=== PATIENT | male | born 1995 | race American Indian/Alaskan Native ===

== ENCOUNTER 2017-09-24 13:55 | Inpatient (IN) | payer BC ==
[2017-09-24 15:29] LABS: Hematocrit 47.7 % (35.5-45.6); Mean Corpuscular HGB Conc 34 % (32-34); Mean Corpuscular Hemoglobin 29 pg (28-32); Mean Corpuscular Volume 86 fl (84-94); Platelet Count 359 K/mm3 (140-440); Red Blood Count 5.57 M/mm3 (3.65-5.03); Red Cell Distribution Width 14.2 % (13.2-15.2)
[2017-09-24 15:42] LABS: BUN/Creatinine Ratio 13; Blood Urea Nitrogen 14 mg/dL (9-20); Calcium 10.4 mg/dL (8.4-10.2); Hemolysis Index 8
[2017-09-24 16:39] LABS: Bacteria,Urine 1+ /HPF (Negative); Bilirubin,Urine NEG (Negative); Blood,Urine NEG (Negative); Color,Urine Yellow (Yellow); Mucus,Urine 3+ /HPF; Urobilinogen,Urine < 2.0 mg/dL (<2.0)
[2017-09-24] MEDS ORDERED: NACL 0.9% 1000 ML 1,000 ML IV ONE ×2 (16:45)
[2017-09-24] MEDS ORDERED: ZOFRAN IV ONE (16:45)
--- NOTE | 2017-09-24 16:45 | Emergency Department Report ---
<SUSHANTLD MCKEON - Last Filed: 09/24/17 19:40> ED Abdominal Pain HPI - General Chief Complaint: Abdominal Pain Stated Complaint: SYNCOPE AND ANXIETY Time Seen by Provider: 09/24/17 16:25 Source: patient, family, EMS Mode of arrival: Ambulatory Limitations: No Limitations - History of Present Illness Initial Comments: Patient said he passed out at work today. He also complained of abdominal pain , nausea, vomiting and diarrhea. Patient's has a history of peptic ulcer disease. He said he saw blood earlier on his vomit. MD Complaint: abdominal pain -: Sudden Location: periumbilical, epigastric Radiation: none Migration to: no migration Severity: severe Severity scale (0 -10): 8 Quality: sharp Consistency: constant Improves With: nothing Worsens With: nothing Associated Symptoms: nausea, vomiting, diarrhea, fever - Related Data Home Medications Medication Instructions Recorded Confirmed Last Taken No Known Home Medications [No 09/24/17 09/24/17 Unknown Reported Home Medications] Allergies Allergy/AdvReac Type Severity Reaction Status Date / Time No Known Allergies Allergy Unverified 09/24/17 14:52 ED Review of Systems ROS: Stated complaint: SYNCOPE AND ANXIETY Other details as noted in HPI Comment: All other systems reviewed and negative Constitutional: fever, malaise. denies: chills Eyes: denies: vision change ENT: denies: ear pain, dental pain Respiratory: denies: cough, shortness of breath Cardiovascular: denies: chest pain, palpitations Endocrine: no symptoms reported Gastrointestinal: abdominal pain, nausea, vomiting, diarrhea Genitourinary: denies: urgency, dysuria, frequency, hematuria Musculoskeletal: denies: back pain, joint swelling Skin: denies: rash, lesions, change in color Neurological: denies: headache, weakness, numbness, paresthesias Psychiatric: denies: anxiety, depression Hematological/Lymphatic: denies: easy bleeding, easy bruising ED Past Medical Hx - Past Medical History Previous Medical History?: Yes Hx GERD: Yes Additional medical history: anxiety and stopped taking meds - Surgical History Past Surgical History?: Yes Additional Surgical History: Left hand surgery - Social History Smoking Status: Current Every Day Smoker Substance Use Type: Marijuana - Medications Home Medications: Home Medications Medication Instructions Recorded Confirmed Last Taken Type No Known Home Medications [No 09/24/17 09/24/17 Unknown History Reported Home Medications] ED Physical Exam - General Limitations: No Limitations General appearance: alert, in no apparent distress - Head Head exam: Present: atraumatic, normocephalic, normal inspection - Eye Eye exam: Present: normal appearance, PERRL, EOMI Pupils: Present: normal accommodation - ENT ENT exam: Present: normal exam, normal orophraynx, mucous membranes moist - Neck Neck exam: Present: normal inspection, full ROM. Absent: tenderness - Respiratory Respiratory exam: Present: normal lung sounds bilaterally. Absent: respiratory distress, wheezes, rhonchi - Cardiovascular Cardiovascular Exam: Present: regular rate, normal rhythm, normal heart sounds - GI/Abdominal GI/Abdominal exam: Present: soft, tenderness (epigastric), normal bowel sounds. Absent: distended, guarding, rebound - Rectal Rectal exam: Present: deferred - Extremities Exam Extremities exam: Present: normal inspection, full ROM, normal capillary refill - Back Exam Back exam: Present: normal inspection, full ROM. Absent: tenderness, CVA tenderness (R), CVA tenderness (L) - Neurological Exam Neurological exam: Present: alert, oriented X3, CN II-XII intact - Psychiatric Psychiatric exam: Present: normal affect, normal mood - Skin Skin exam: Present: warm, dry, intact, normal color. Absent: rash ED Course Vital Signs 09/24/17 09/24/17 09/24/17 14:52 16:39 16:46 Temperature 99 F 98.3 F Pulse Rate 66 Respiratory 24 19 19 Rate Blood Pressure 118/63 O2 Sat by Pulse 99 100 100 Oximetry 09/24/17 09/24/17 09/24/17 19:09 19:15 20:00 Temperature Pulse Rate 71 78 73 Respiratory 14 19 13 Rate Blood Pressure 116/67 119/63 O2 Sat by Pulse 98 98 98 Oximetry - Reevaluation(s) Reevaluation #1: 09/24/17 19:40 I discussed this in detail with the hospitalist on-call Dr. Gill. He will admit patient to the hospital for further evaluation and management. ED Medical Decision Making - Lab Data Result diagrams: 09/24/17 15:09 09/24/17 15:09 - EKG Data -: EKG Interpreted by Pa EKG shows normal: sinus rhythm Rate: normal (63) - EKG Data When compared to previous EKG there are: previous EKG unavailable Interpretation: LVH, other (No STEMI) - Radiology Data Radiology results: report reviewed, image reviewed - Medical Decision Making Syncope. Abdominal pain. Orthostatic hypotension. Gastroenteritis. Leukocytosis. Sepsis. Critical care attestation.: If time is entered above; I have spent that time in minutes in the direct care of this critically ill patient, excluding procedure time. ED Disposition Disposition: OP ADMIT IP TO THIS HOSP Is pt being admited?: Yes Does the pt Need Aspirin: No Condition: Stable Time of Disposition: 19:41 <OSIRIS GILL - Last Filed: 09/24/17 21:58> ED Medical Decision Making - Lab Data Result diagrams: 09/24/17 15:09 09/24/17 15:09
[2017-09-24 16:48] LABS: Anisocytosis 1+; Band Neutrophils # (Manual) 0.4 K/mm3; Basophils % (Manual) 0 % (0.0-1.8); Eosinophils % (Manual) 0 % (0.0-4.3); Total Cells Counted 200
[2017-09-24 16:51] LABS: Platelet Estimate Consistent w Auto
[2017-09-24 16:59] LABS: Amphetamine Screen,Urine PRESUMPTIVE NEGATIVE; Benzodiazepines Screen,Urine PRESUMPTIVE NEGATIVE; Methadone Screen,Urine PRESUMPTIVE NEGATIVE; Opiate Screen,Urine PRESUMPTIVE NEGATIVE
[2017-09-24 17:15] LABS: Cannabinoid Screen,Urine PRESUMPTIVE POSITIVE; Cocaine Screen,Urine PRESUMPTIVE POSITIVE
[2017-09-24 17:28] LABS: Alanine Aminotransferase 28 units/L (7-56); Albumin 5.3 g/dL (3.9-5)
[2017-09-24 17:33] LABS: Bilirubin,Direct < 0.2 mg/dL (0-0.2)
[2017-09-24] MEDS ORDERED: LEVAQUIN 750MG/150ML 750 MG/150 ML BAG IV ONE (17:47)
[2017-09-24] MEDS ORDERED: PROTONIX IV ONE (17:49)
--- NOTE | 2017-09-24 18:09 | XRay Report ---
FINAL REPORT EXAM: XR CHEST 1V AP HISTORY: syncope TECHNIQUE: One view examination of the chest PRIORS: None FINDINGS: There is no visible pulmonary consolidation, pleural effusion, or pneumothorax. Cardiac silhouette size is normal without vascular congestion. No visible acute displaced fracture in the regional skeleton. IMPRESSION: No evidence of acute cardiopulmonary disease in the visualized chest
[2017-09-24 18:35] LABS: INR 1.03 (0.87-1.13)
[2017-09-24 18:36] LABS: Partial Thromboplastin Time 34.4 Sec. (24.2-36.6)
--- NOTE | 2017-09-24 18:59 | Cat Scan Report ---
FINAL REPORT EXAM: CT HEAD/BRAIN WO CON HISTORY: Syncope TECHNIQUE: CT examination of the head without IV contrast PRIORS: None. FINDINGS: No acute air-fluid level visualized in the included air-filled sinuses. Bone windows demonstrate no acute fracture. The brain is without mass, mass effect, hemorrhage, or acute infarct. There is no extra-axial intracranial bleed, brain bleed, or midline shift. The ventricles and sulci are age-appropriate. IMPRESSION: No acute CVA, intracranial bleed, or brain mass
--- NOTE | 2017-09-24 19:24 | Cat Scan Report ---
FINAL REPORT EXAM: CT ABDOMEN PELVIS W CON HISTORY: abdominal pain, nausea. vomiting and diarrhea. TECHNIQUE: Standard enhanced CT of the abdomen and pelvis. Coronal and sagittal reconstruction was also performed. Delayed imaging through the kidneys and bladder was obtained. Contrast: Intravenous and oral contrast was given PRIORS: None. FINDINGS: Within the abdomen, the liver, spleen, pancreas, gallbladder, adrenal glands, and kidneys are unremarkable. No evidence for retroperitoneal or pelvic lymphadenopathy is seen. The bowel loops have normal caliber. No soft tissue mass, fluid collection, inflammatory change, or free air is seen within the abdomen or pelvis. The appendix is normal. Within the pelvis, the bladder is unremarkable. The prostate is normal. No evidence for mass or lymphadenopathy is seen in the pelvis. Images through the upper abdomen include the lung bases which are expanded and clear. Bony structures show no focal abnormalities and are intact. IMPRESSION: No acute intra-abdominal process noted.
[2017-09-24] MEDS ORDERED: SODIUM CHLORIDE FLUSH SYRINGE 10 ML IV PRN (21:45)
[2017-09-24] MEDS ORDERED: MORPHINE IV PRN (21:45)
[2017-09-24] MEDS ORDERED: TYLENOL PO PRN (21:45)
[2017-09-24] MEDS ORDERED: REGLAN IV PRN (21:45)
[2017-09-24] MEDS ORDERED: ZOFRAN IV PRN (21:45)
[2017-09-24] MEDS ORDERED: PERCOCET 5/325 PO PRN (21:45)
--- NOTE | 2017-09-24 21:45 | History and Physical Report ---
History of Present Illness Date of examination: 09/24/17 Date of admission: 09/24/17 19:41 Chief complaint: Chief complaint: Nausea vomiting and diarrhea for 2 days duration more so for today . Also passed out at work today. History of present illness: History of Present Illness: 22-year-old -[place] male with no significant past medical history except for severe reflux and comes in for nausea vomiting and diarrhea of 2 days duration. More vomiting today. Patient was at work when he passed out. Patient attributes it to dehydration. Did not have any fever or cough or congestion in the last few days. No dysuria. No risk factors no muscle aches. No chest pain no seizures. No exacerbating or relieving factors. Patient also has abdominal pain which is 5/10. Dull in character. Cramping pain. There's small amount of blood in 1 episode of vomiting. No hematemesis persistently. Past Medical History Previous Medical History?: Yes Hx GERD: Yes Additional medical history: anxiety and stopped taking meds Surgical History Past Surgical History?: Yes Additional Surgical History: Left hand surgery Social History Smoking Status: Current Every Day Smoker Substance Use Type: Marijuana and cocaine Family history Htn Medications Home Medications: Home Medications Medication Instructions Recorded Confirmed Last Taken Type No Known Home Medications [No 09/24/17 09/24/17 Unknown History Reported Home Medications] Review of Systems ROS: Stated complaint: SYNCOPE AND ANXIETY Other details as noted in HPI Comment: All other systems reviewed and negative Constitutional: fever, malaise. denies: chills Eyes: denies: vision change ENT: denies: ear pain, dental pain Respiratory: denies: cough, shortness of breath Cardiovascular: denies: chest pain, palpitations Endocrine: no symptoms reported Gastrointestinal: abdominal pain, nausea, vomiting, diarrhea 2 days patient also has severe reflux of acid for the past couple years Genitourinary: denies: urgency, dysuria, frequency, hematuria Musculoskeletal: denies: back pain, joint swelling Skin: denies: rash, lesions, change in color Neurological: denies: headache, weakness, numbness, paresthesias Psychiatric: denies: anxiety, depression Hematological/Lymphatic: denies: easy bleeding, easy bruising Medications and Allergies Allergies Allergy/AdvReac Type Severity Reaction Status Date / Time No Known Allergies Allergy Unverified 09/24/17 14:52 Home Medications Medication Instructions Recorded Confirmed Last Taken Type No Known Home Medications [No 09/24/17 09/24/17 Unknown History Reported Home Medications] Exam - Constitutional Vitals: Temp Pulse Resp BP Pulse Ox 98.3 F 73 13 119/63 98 09/24/17 16:39 09/24/17 20:00 09/24/17 20:00 09/24/17 20:00 09/24/17 20:00 General appearance: Present: no acute distress, well-nourished, other (tongue dry) - EENT Eyes: Present: PERRL ENT: hearing intact, clear oral mucosa - Neck Neck: Present: supple, normal ROM - Respiratory Respiratory effort: normal Respiratory: bilateral: CTA - Cardiovascular Heart rate: 96 Rhythm: regular Heart Sounds: Present: S1 & S2. Absent: rub, click - Extremities Extremities: no ischemia, pulses intact, pulses symmetrical, No edema Peripheral Pulses: within normal limits - Abdominal General gastrointestinal: Present: soft, non-tender, non-distended, normal bowel sounds Male genitourinary: Present: normal - Integumentary Integumentary: Present: clear, warm, dry - Musculoskeletal Musculoskeletal: gait normal, strength equal bilaterally - Psychiatric Psychiatric: appropriate mood/affect, intact judgment & insight - Neurologic Neurologic: CNII-XII intact, moves all extremities - Allied Health Allied health notes reviewed: nursing, case management Results - Labs CBC & Chem 7: 09/24/17 15:09 09/24/17 15:09 Labs: Laboratory Last Values WBC 28.4 K/mm3 (4.5-11.0) H 09/24/17 15:09 RBC 5.57 M/mm3 (3.65-5.03) H 09/24/17 15:09 Hgb 16.0 gm/dl (11.8-15.2) H 09/24/17 15:09 Hct 47.7 % (35.5-45.6) H 09/24/17 15:09 MCV 86 fl (84-94) 09/24/17 15:09 MCH 29 pg (28-32) 09/24/17 15:09 MCHC 34 % (32-34) 09/24/17 15:09 RDW 14.2 % (13.2-15.2) 09/24/17 15:09 Plt Count 359 K/mm3 (140-440) 09/24/17 15:09 Add Manual Diff Complete 09/24/17 15:09 Total Counted 200 09/24/17 15:09 Seg Neuts % (Manual) 87.5 % (40.0-70.0) H 09/24/17 15:09 Band Neutrophils % 1.5 % 09/24/17 15:09 Lymphocytes % (Manual) 5.0 % (13.4-35.0) L 09/24/17 15:09 Reactive Lymphs % (Man) 0 % 09/24/17 15:09 Monocytes % (Manual) 6.0 % (0.0-7.3) 09/24/17 15:09 Eosinophils % (Manual) 0 % (0.0-4.3) 09/24/17 15:09 Basophils % (Manual) 0 % (0.0-1.8) 09/24/17 15:09 Metamyelocytes % 0 % 09/24/17 15:09 Myelocytes % 0 % 09/24/17 15:09 Promyelocytes % 0 % 09/24/17 15:09 Blast Cells % 0 % 09/24/17 15:09 Nucleated RBC % Not Reportable 09/24/17 15:09 Seg Neutrophils # Man 24.9 K/mm3 (1.8-7.7) H 09/24/17 15:09 Band Neutrophils # 0.4 K/mm3 09/24/17 15:09 Lymphocytes # (Manual) 1.4 K/mm3 (1.2-5.4) 09/24/17 15:09 Abs React Lymphs (Man) 0.0 K/mm3 09/24/17 15:09 Monocytes # (Manual) 1.7 K/mm3 (0.0-0.8) H 09/24/17 15:09 Eosinophils # (Manual) 0.0 K/mm3 (0.0-0.4) 09/24/17 15:09 Basophils # (Manual) 0.0 K/mm3 (0.0-0.1) 09/24/17 15:09 Metamyelocytes # 0.0 K/mm3 09/24/17 15:09 Myelocytes # 0.0 K/mm3 09/24/17 15:09 Promyelocytes # 0.0 K/mm3 09/24/17 15:09 Blast Cells # 0.0 K/mm3 09/24/17 15:09 WBC Morphology Not Reportable 09/24/17 15:09 Hypersegmented Neuts Not Reportable 09/24/17 15:09 Hyposegmented Neuts Not Reportable 09/24/17 15:09 Hypogranular Neuts Not Reportable 09/24/17 15:09 Smudge Cells Not Reportable 09/24/17 15:09 Toxic Granulation Not Reportable 09/24/17 15:09 Toxic Vacuolation Not Reportable 09/24/17 15:09 Dohle Bodies Not Reportable 09/24/17 15:09 Pelger-Huet Anomaly Not Reportable 09/24/17 15:09 Beata Rods Not Reportable 09/24/17 15:09 Platelet Estimate Consistent w auto 09/24/17 15:09 Clumped Platelets Not Reportable 09/24/17 15:09 Plt Clumps, EDTA Not Reportable 09/24/17 15:09 Large Platelets Not Reportable 09/24/17 15:09 Giant Platelets Not Reportable 09/24/17 15:09 Platelet Satelliting Not Reportable 09/24/17 15:09 Plt Morphology Comment Not Reportable 09/24/17 15:09 RBC Morphology Not Reportable 09/24/17 15:09 Dimorphic RBCs Not Reportable 09/24/17 15:09 Polychromasia Not Reportable 09/24/17 15:09 Hypochromasia Not Reportable 09/24/17 15:09 Poikilocytosis Not Reportable 09/24/17 15:09 Anisocytosis 1+ 09/24/17 15:09 Microcytosis Not Reportable 09/24/17 15:09 Macrocytosis Not Reportable 09/24/17 15:09 Spherocytes Not Reportable 09/24/17 15:09 Pappenheimer Bodies Not Reportable 09/24/17 15:09 Sickle Cells Not Reportable 09/24/17 15:09 Target Cells Not Reportable 09/24/17 15:09 Tear Drop Cells Not Reportable 09/24/17 15:09 Ovalocytes Not Reportable 09/24/17 15:09 Helmet Cells Not Reportable 09/24/17 15:09 [place] Bodies Not Reportable 09/24/17 15:09 [place] Rings Not Reportable 09/24/17 15:09 Karley Cells Not Reportable 09/24/17 15:09 Bite Cells Not Reportable 09/24/17 15:09 Crenated Cell Not Reportable 09/24/17 15:09 Elliptocytes Not Reportable 09/24/17 15:09 Acanthocytes (Spur) Not Reportable 09/24/17 15:09 Rouleaux Not Reportable 09/24/17 15:09 Hemoglobin C Crystals Not Reportable 09/24/17 15:09 Schistocytes Not Reportable 09/24/17 15:09 Malaria parasites Not Reportable 09/24/17 15:09 [place] Bodies Not Reportable 09/24/17 15:09 Hem Pathologist Commnt No 09/24/17 15:09 PT 14.0 Sec. (12.2-14.9) 09/24/17 18:07 INR 1.03 (0.87-1.13) 09/24/17 18:07 APTT 34.4 Sec. (24.2-36.6) 09/24/17 18:07 Sodium 140 mmol/L (137-145) 09/24/17 15:09 Potassium 4.7 mmol/L (3.6-5.0) 09/24/17 15:09 Chloride 102.5 mmol/L (98-107) 09/24/17 15:09 Carbon Dioxide 23 mmol/L (22-30) 09/24/17 15:09 Anion Gap 19 mmol/L 09/24/17 15:09 BUN 14 mg/dL (9-20) 09/24/17 15:09 Creatinine 1.1 mg/dL (0.8-1.5) 09/24/17 15:09 Estimated GFR > 60 ml/min 09/24/17 15:09 BUN/Creatinine Ratio 13 % 09/24/17 15:09 Glucose 124 mg/dL (75-100) H 09/24/17 15:09 Lactic Acid 2.40 mmol/L (0.7-2.0) H* 09/24/17 19:07 Calcium 10.4 mg/dL (8.4-10.2) H 09/24/17 15:09 Total Bilirubin 1.00 mg/dL (0.1-1.2) 09/24/17 16:59 Direct Bilirubin < 0.2 mg/dL (0-0.2) 09/24/17 16:59 Indirect Bilirubin 0.8 mg/dL 09/24/17 16:59 AST 20 units/L (5-40) 09/24/17 16:59 ALT 28 units/L (7-56) 09/24/17 16:59 Alkaline Phosphatase 80 units/L (35-129) 09/24/17 16:59 Total Creatine Kinase 181 units/L (55-170) H 09/24/17 16:59 Troponin T < 0.010 ng/mL (0.00-0.029) 09/24/17 16:59 Total Protein 8.6 g/dL (6.3-8.2) H 09/24/17 16:59 Albumin 5.3 g/dL (3.9-5) H 09/24/17 16:59 Albumin/Globulin Ratio 1.6 % 09/24/17 16:59 Lipase 16 units/L (13-60) 09/24/17 16:59 Urine Color Yellow (Yellow) 09/24/17 16:07 Urine Turbidity Clear (Clear) 09/24/17 16:07 Urine pH 5.0 (5.0-7.0) 09/24/17 16:07 Ur Specific [place] 1.028 (1.003-1.030) 09/24/17 16:07 Urine Protein 30 mg/dl mg/dL (Negative) 09/24/17 16:07 Urine Glucose (UA) Neg mg/dL (Negative) 09/24/17 16:07 Urine Ketones Tr mg/dL (Negative) 09/24/17 16:07 Urine Blood Neg (Negative) 09/24/17 16:07 Urine Nitrite Neg (Negative) 09/24/17 16:07 Urine Bilirubin Neg (Negative) 09/24/17 16:07 Urine Urobilinogen < 2.0 mg/dL (<2.0) 09/24/17 16:07 Ur Leukocyte Esterase Neg (Negative) 09/24/17 16:07 Urine WBC (Auto) 5.0 /HPF (0.0-6.0) 09/24/17 16:07 Urine RBC (Auto) 1.0 /HPF (0.0-6.0) 09/24/17 16:07 Urine Bacteria (Auto) 1+ /HPF (Negative) 09/24/17 16:07 Urine Mucus 3+ /HPF 09/24/17 16:07 Salicylates < 0.3 mg/dL (2.8-20.0) L 09/24/17 15:09 Urine Opiates Screen Presumptive negative 09/24/17 16:07 Urine Methadone Screen Presumptive negative 09/24/17 16:07 Acetaminophen < 5.0 ug/mL (10.0-30.0) L 09/24/17 15:09 Ur Barbiturates Screen Presumptive negative 09/24/17 16:07 Ur Phencyclidine Scrn Presumptive negative 09/24/17 16:07 Ur Amphetamines Screen Presumptive negative 09/24/17 16:07 U Benzodiazepines Scrn Presumptive negative 09/24/17 16:07 Urine Cocaine Screen Presumptive positive 09/24/17 16:07 U Marijuana (THC) Screen Presumptive positive 09/24/17 16:07 Drugs of Abuse Note Disclamer 09/24/17 16:07 Plasma/Serum Alcohol < 0.01 % (0-0.07) 09/24/17 15:09 - Imaging and Cardiology Imaging and Cardiology: Imaging studies Chest x-ray negative Abdominal CT negative No acute process Head CT Negative no acute process Assessment and Plan Advance Directives: Yes (full code) VTE prophylaxis?: Chemical Plan of care discussed with patient/family: Yes - Patient Problems (1) Sepsis Current Visit: Yes Status: Acute Qualifiers: Sepsis type: sepsis due to unspecified organism Qualified Code(s): A41.9 - Sepsis, unspecified organism Plan to address problem: No source of infection found Possible De margination Patient initiated on IV Zosyn for possible intra-abdominal infection versus colitis. CT abdomen is negative ID consult was requested (2) Syncope and collapse Current Visit: Yes Status: Acute Plan to address problem: Secondary to volume depletion Patient being young no carotid duplex scan or echocardiogram or stress test were ordered IV fluids for now (3) Acute gastritis Current Visit: Yes Status: Acute Qualifiers: Gastritis type: unspecified gastritis Gastritis bleeding: with bleeding Qualified Code(s): K29.01 - Acute gastritis with bleeding Plan to address problem: With very small bleed secondary to retching IV Protonix initiated GI consult requested for possible upper endoscopy Patient has history of peptic ulcer disease Patient to be discharged on PPIs (4) Diarrhea Current Visit: Yes Status: Acute Qualifiers: Diarrhea type: unspecified type Qualified Code(s): R19.7 - Diarrhea, unspecified Plan to address problem: C. difficile to be ruled out Stool cultures ordered (5) Cocaine abuse Current Visit: Yes Status: Chronic Plan to address problem: Patient counseled (6) Marijuana abuse Current Visit: Yes Status: Chronic Plan to address problem: Patient counseled (7) Nicotine dependence Current Visit: Yes Status: Chronic Qualifiers: Nicotine product type: cigarettes Plan to address problem: Patient counseled an NicoDerm patch applied (8) DVT prophylaxis Current Visit: Yes Status: Acute Plan to address problem: On heparin 5000 units every 12 subcutaneously
[2017-09-25] MEDS: HEPARIN SUB-Q SCH ×3 (00:18→22:33)
[2017-09-25] MEDS: SODIUM CHLORIDE FLUSH SYRINGE 10 ML IV SCH ×3 (00:18→22:34)
[2017-09-25] MEDS: D5NS 1,000 ML IV SCH (00:18)
[2017-09-25] MEDS: ZOSYN/NS 4.5GM/100ML 4.5 GM/100 ML VIAL IV SCH ×2 (00:20→06:37)
[2017-09-25] MEDS: PROTONIX 80 MG in NACL 0.9% 100 ML IV SCH ×2 (02:11→22:33)
[2017-09-25 08:38] LABS: Hematocrit 40.6 % (35.5-45.6); Hemoglobin 13.1 gm/dl (11.8-15.2); Mean Corpuscular HGB Conc 32 % (32-34); Mean Corpuscular Hemoglobin 28 pg (28-32); Mean Corpuscular Volume 86 fl (84-94); Platelet Count 310 K/mm3 (140-440)
[2017-09-25 08:55] LABS: BUN/Creatinine Ratio 8; Blood Urea Nitrogen 9 mg/dL (9-20); Calcium 8.8 mg/dL (8.4-10.2); Hemolysis Index 5
--- NOTE | 2017-09-25 09:39 | Gastroenterology Consultation ---
<LIBIALUCERO TANK - Last Filed: 09/25/17 09:35> History of Present Illness - Reason for Consult Consult date: 09/25/17 N/V./D Requesting physician: OSIRIS GILL - History of Present Illness Mr Lindo is a 22 y/o male admitted with a 24 hr hx N/V/D with a sudden onset yesterday. He reports passing out at work. Prior to yesterday, he was in his usual state of health. No prior medical hx. He reports several episodes of N/V with one episodes with light pink tinge and multiple episodes of diarrhea. On admission , he was noted to have an elevated WBC and lactic acid level. CT negative. LFTS negative. No known sick contacts or questionable food. Past History Past Medical History: No medical history Past Surgical History: No surgical history Social history: smoking, other (cocaine and marijuana use. ) Family history: no significant family history Medications and Allergies Allergies Allergy/AdvReac Type Severity Reaction Status Date / Time No Known Allergies Allergy Unverified 09/24/17 14:52 Home Medications Medication Instructions Recorded Confirmed Last Taken Type No Known Home Medications [No 09/24/17 09/24/17 Unknown History Reported Home Medications] Active Meds: Active Medications Acetaminophen (Tylenol) 650 mg PO Q4H PRN PRN Reason: Pain MILD(1-3)/Fever >100.5/PRADO Heparin Sodium (Porcine) (Heparin) 5,000 unit SUB-Q Q12HR [facility] Last Admin: 09/25/17 00:18 Dose: 5,000 unit Dextrose/Sodium Chloride (D5ns) 1,000 mls @ 125 mls/hr IV DIRECT [facility] Last Admin: 09/25/17 00:18 Dose: 125 mls/hr Piperacillin Sod/Tazobactam Sod (Zosyn/Ns 4.5gm/100ml) 4.5 gm in 100 mls @ 200 mls/hr IV Q8HR [facility]; Protocol Last Admin: 09/25/17 06:37 Dose: 200 mls/hr Pantoprazole Sodium 80 mg/ (Sodium Chloride) 100 mls @ 10 mls/hr IV DIRECT [facility] Last Admin: 09/25/17 02:11 Dose: 8 mg/hr, 10 mls/hr Metoclopramide HCl (Reglan) 10 mg IV Q6H PRN PRN Reason: Nausea And Vomiting Morphine Sulfate (Morphine) 2 mg IV Q4H PRN PRN Reason: Pain, Moderate (4-6) Nicotine (Habitrol) 21 mg TD QDAY [facility] Ondansetron HCl (Zofran) 4 mg IV Q8H PRN PRN Reason: Nausea And Vomiting Oxycodone/Acetaminophen (Percocet 5/325) 1 tab PO Q6H PRN PRN Reason: Pain, Moderate (4-6) Sodium Chloride (Sodium Chloride Flush Syringe 10 Ml) 10 ml IV BID [facility] Last Admin: 09/25/17 00:18 Dose: 10 ml Sodium Chloride (Sodium Chloride Flush Syringe 10 Ml) 10 ml IV PRN PRN PRN Reason: LINE FLUSH Review of Systems - Review of Systems All systems: negative Constitutional: weakness, poor appetite Gastrointestinal: nausea, vomiting, diarrhea Exam - Constitutional Vital Signs: Temp Pulse Resp BP Pulse Ox 98.5 F 69 16 97/55 98 09/25/17 05:00 09/25/17 05:00 09/25/17 05:00 09/25/17 05:00 09/25/17 05:00 General appearance: no acute distress - EENT Eyes: EOM intact ENT: hearing intact - Neck Neck: supple - Respiratory Respiratory: bilateral: CTA - Cardiovascular Rhythm: regular Heart Sounds: Present: systolic murmur Extremities: No edema - Gastrointestinal General gastrointestinal: Present: non-tender, tender - Integumentary Integumentary: Present: warm, dry - Neurologic Neurological: alert and oriented x3 - Labs CBC & Chem 7: 09/25/17 08:09 09/25/17 08:09 Lab Results: Laboratory Results - last 24 hr 09/24/17 09/24/17 09/24/17 02:16 15:09 15:09 WBC RBC Hgb Hct MCV MCH MCHC RDW Plt Count Add Manual Diff Total Counted Seg Neuts % (Manual) Band Neutrophils % Lymphocytes % (Manual) Reactive Lymphs % (Man) Monocytes % (Manual) Eosinophils % (Manual) Basophils % (Manual) Metamyelocytes % Myelocytes % Promyelocytes % Blast Cells % Nucleated RBC % Seg Neutrophils # Man Band Neutrophils # Lymphocytes # (Manual) Abs React Lymphs (Man) Monocytes # (Manual) Eosinophils # (Manual) Basophils # (Manual) Metamyelocytes # Myelocytes # Promyelocytes # Blast Cells # WBC Morphology Hypersegmented Neuts Hyposegmented Neuts Hypogranular Neuts Smudge Cells Toxic Granulation Toxic Vacuolation Dohle Bodies Pelger-Huet Anomaly Beata Rods Platelet Estimate Clumped Platelets Plt Clumps, EDTA Large Platelets Giant Platelets Platelet Satelliting Plt Morphology Comment RBC Morphology Dimorphic RBCs Polychromasia Hypochromasia Poikilocytosis Anisocytosis Microcytosis Macrocytosis Spherocytes Pappenheimer Bodies Sickle Cells Target Cells Tear Drop Cells Ovalocytes Helmet Cells [place] Bodies [place] Rings [place] Cells Bite Cells Crenated Cell Elliptocytes Acanthocytes (Spur) Rouleaux Hemoglobin C Crystals Schistocytes Malaria parasites [place] Bodies Hem Pathologist Commnt PT INR APTT Sodium Potassium Chloride Carbon Dioxide Anion Gap BUN Creatinine Estimated GFR BUN/Creatinine Ratio Glucose Hemoglobin A1c 5.4 Lactic Acid Calcium Total Bilirubin Direct Bilirubin Indirect Bilirubin AST ALT Alkaline Phosphatase Total Creatine Kinase Troponin T Total Protein Albumin Albumin/Globulin Ratio Lipase Urine Color Urine Turbidity Urine pH Ur Specific [place] Urine Protein Urine Glucose (UA) Urine Ketones Urine Blood Urine Nitrite Urine Bilirubin Urine Urobilinogen Ur Leukocyte Esterase Urine WBC (Auto) Urine RBC (Auto) Urine Bacteria (Auto) Urine Mucus Salicylates < 0.3 L Urine Opiates Screen Urine Methadone Screen Acetaminophen < 5.0 L Ur Barbiturates Screen Ur Phencyclidine Scrn Ur Amphetamines Screen U Benzodiazepines Scrn Urine Cocaine Screen U Marijuana (THC) Screen Drugs of Abuse Note Plasma/Serum Alcohol 09/24/17 09/24/17 09/24/17 15:09 15:09 15:09 WBC 28.4 H RBC 5.57 H Hgb 16.0 H Hct 47.7 H MCV 86 MCH 29 MCHC 34 RDW 14.2 Plt Count 359 Add Manual Diff Complete Total Counted 200 Seg Neuts % (Manual) 87.5 H Band Neutrophils % 1.5 Lymphocytes % (Manual) 5.0 L Reactive Lymphs % (Man) 0 Monocytes % (Manual) 6.0 Eosinophils % (Manual) 0 Basophils % (Manual) 0 Metamyelocytes % 0 Myelocytes % 0 Promyelocytes % 0 Blast Cells % 0 Nucleated RBC % Not Reportable Seg Neutrophils # Man 24.9 H Band Neutrophils # 0.4 Lymphocytes # (Manual) 1.4 Abs React Lymphs (Man) 0.0 Monocytes # (Manual) 1.7 H Eosinophils # (Manual) 0.0 Basophils # (Manual) 0.0 Metamyelocytes # 0.0 Myelocytes # 0.0 Promyelocytes # 0.0 Blast Cells # 0.0 WBC Morphology Not Reportable Hypersegmented Neuts Not Reportable Hyposegmented Neuts Not Reportable Hypogranular Neuts Not Reportable Smudge Cells Not Reportable Toxic Granulation Not Reportable Toxic Vacuolation Not Reportable Dohle Bodies Not Reportable Pelger-Huet Anomaly Not Reportable Beata Rods Not Reportable Platelet Estimate Consistent w auto Clumped Platelets Not Reportable Plt Clumps, EDTA Not Reportable Large Platelets Not Reportable Giant Platelets Not Reportable Platelet Satelliting Not Reportable Plt Morphology Comment Not Reportable RBC Morphology Not Reportable Dimorphic RBCs Not Reportable Polychromasia Not Reportable Hypochromasia Not Reportable Poikilocytosis Not Reportable Anisocytosis 1+ Microcytosis Not Reportable Macrocytosis Not Reportable Spherocytes Not Reportable Pappenheimer Bodies Not Reportable Sickle Cells Not Reportable Target Cells Not Reportable Tear Drop Cells Not Reportable Ovalocytes Not Reportable Helmet Cells Not Reportable [place] Bodies Not Reportable [place] Rings Not Reportable Karley Cells Not Reportable Bite Cells Not Reportable Crenated Cell Not Reportable Elliptocytes Not Reportable Acanthocytes (Spur) Not Reportable Rouleaux Not Reportable Hemoglobin C Crystals Not Reportable Schistocytes Not Reportable Malaria parasites Not Reportable [place] Bodies Not Reportable Hem Pathologist Commnt No PT INR APTT Sodium 140 Potassium 4.7 Chloride 102.5 Carbon Dioxide 23 Anion Gap 19 BUN 14 Creatinine 1.1 Estimated GFR > 60 BUN/Creatinine Ratio 13 Glucose 124 H Hemoglobin A1c Lactic Acid Calcium 10.4 H Total Bilirubin Direct Bilirubin Indirect Bilirubin AST ALT Alkaline Phosphatase Total Creatine Kinase Troponin T Total Protein Albumin Albumin/Globulin Ratio Lipase Urine Color Urine Turbidity Urine pH Ur Specific [place] Urine Protein Urine Glucose (UA) Urine Ketones Urine Blood Urine Nitrite Urine Bilirubin Urine Urobilinogen Ur Leukocyte Esterase Urine WBC (Auto) Urine RBC (Auto) Urine Bacteria (Auto) Urine Mucus Salicylates Urine Opiates Screen Urine Methadone Screen Acetaminophen Ur Barbiturates Screen Ur Phencyclidine Scrn Ur Amphetamines Screen U Benzodiazepines Scrn Urine Cocaine Screen U Marijuana (THC) Screen Drugs of Abuse Note Plasma/Serum Alcohol < 0.01 09/24/17 09/24/17 09/24/17 16:07 16:07 16:59 WBC RBC Hgb Hct MCV MCH MCHC RDW Plt Count Add Manual Diff Total Counted Seg Neuts % (Manual) Band Neutrophils % Lymphocytes % (Manual) Reactive Lymphs % (Man) Monocytes % (Manual) Eosinophils % (Manual) Basophils % (Manual) Metamyelocytes % Myelocytes % Promyelocytes % Blast Cells % Nucleated RBC % Seg Neutrophils # Man Band Neutrophils # Lymphocytes # (Manual) Abs React Lymphs (Man) Monocytes # (Manual) Eosinophils # (Manual) Basophils # (Manual) Metamyelocytes # Myelocytes # Promyelocytes # Blast Cells # WBC Morphology Hypersegmented Neuts Hyposegmented Neuts Hypogranular Neuts Smudge Cells Toxic Granulation Toxic Vacuolation Dohle Bodies Pelger-Huet Anomaly Beata Rods Platelet Estimate Clumped Platelets Plt Clumps, EDTA Large Platelets Giant Platelets Platelet Satelliting Plt Morphology Comment RBC Morphology Dimorphic RBCs Polychromasia Hypochromasia Poikilocytosis Anisocytosis Microcytosis Macrocytosis Spherocytes Pappenheimer Bodies Sickle Cells Target Cells Tear Drop Cells Ovalocytes Helmet Cells [place] Bodies [place] Rings [place] Cells Bite Cells Crenated Cell Elliptocytes Acanthocytes (Spur) Rouleaux Hemoglobin C Crystals Schistocytes Malaria parasites [place] Bodies Hem Pathologist Commnt PT INR APTT Sodium Potassium Chloride Carbon Dioxide Anion Gap BUN Creatinine Estimated GFR BUN/Creatinine Ratio Glucose Hemoglobin A1c Lactic Acid Calcium Total Bilirubin 1.00 Direct Bilirubin < 0.2 Indirect Bilirubin 0.8 AST 20 ALT 28 Alkaline Phosphatase 80 Total Creatine Kinase Troponin T Total Protein 8.6 H Albumin 5.3 H Albumin/Globulin Ratio 1.6 Lipase Urine Color Yellow Urine Turbidity Clear Urine pH 5.0 Ur Specific [place] 1.028 Urine Protein 30 mg/dl Urine Glucose (UA) Neg Urine Ketones Tr Urine Blood Neg Urine Nitrite Neg Urine Bilirubin Neg Urine Urobilinogen < 2.0 Ur Leukocyte Esterase Neg Urine WBC (Auto) 5.0 Urine RBC (Auto) 1.0 Urine Bacteria (Auto) 1+ Urine Mucus 3+ Salicylates Urine Opiates Screen Presumptive negative Urine Methadone Screen Presumptive negative Acetaminophen Ur Barbiturates Screen Presumptive negative Ur Phencyclidine Scrn Presumptive negative Ur Amphetamines Screen Presumptive negative U Benzodiazepines Scrn Presumptive negative Urine Cocaine Screen Presumptive positive U Marijuana (THC) Screen Presumptive positive Drugs of Abuse Note Disclamer Plasma/Serum Alcohol 09/24/17 09/24/17 09/24/17 16:59 16:59 16:59 WBC RBC Hgb Hct MCV MCH MCHC RDW Plt Count Add Manual Diff Total Counted Seg Neuts % (Manual) Band Neutrophils % Lymphocytes % (Manual) Reactive Lymphs % (Man) Monocytes % (Manual) Eosinophils % (Manual) Basophils % (Manual) Metamyelocytes % Myelocytes % Promyelocytes % Blast Cells % Nucleated RBC % Seg Neutrophils # Man Band Neutrophils # Lymphocytes # (Manual) Abs React Lymphs (Man) Monocytes # (Manual) Eosinophils # (Manual) Basophils # (Manual) Metamyelocytes # Myelocytes # Promyelocytes # Blast Cells # WBC Morphology Hypersegmented Neuts Hyposegmented Neuts Hypogranular Neuts Smudge Cells Toxic Granulation Toxic Vacuolation Dohle Bodies Pelger-Huet Anomaly Beata Rods Platelet Estimate Clumped Platelets Plt Clumps, EDTA Large Platelets Giant Platelets Platelet Satelliting Plt Morphology Comment RBC Morphology Dimorphic RBCs Polychromasia Hypochromasia Poikilocytosis Anisocytosis Microcytosis Macrocytosis Spherocytes Pappenheimer Bodies Sickle Cells Target Cells Tear Drop Cells Ovalocytes Helmet Cells [place] Bodies [place] Rings Karley Cells Bite Cells Crenated Cell Elliptocytes Acanthocytes (Spur) Rouleaux Hemoglobin C Crystals Schistocytes Malaria parasites [place] Bodies Hem Pathologist Commnt PT INR APTT Sodium Potassium Chloride Carbon Dioxide Anion Gap BUN Creatinine Estimated GFR BUN/Creatinine Ratio Glucose Hemoglobin A1c Lactic Acid Calcium Total Bilirubin Direct Bilirubin Indirect Bilirubin AST ALT Alkaline Phosphatase Total Creatine Kinase 181 H Troponin T < 0.010 Total Protein Albumin Albumin/Globulin Ratio Lipase 16 Urine Color Urine Turbidity Urine pH Ur Specific [place] Urine Protein Urine Glucose (UA) Urine Ketones Urine Blood Urine Nitrite Urine Bilirubin Urine Urobilinogen Ur Leukocyte Esterase Urine WBC (Auto) Urine RBC (Auto) Urine Bacteria (Auto) Urine Mucus Salicylates Urine Opiates Screen Urine Methadone Screen Acetaminophen Ur Barbiturates Screen Ur Phencyclidine Scrn Ur Amphetamines Screen U Benzodiazepines Scrn Urine Cocaine Screen U Marijuana (THC) Screen Drugs of Abuse Note Plasma/Serum Alcohol 09/24/17 09/24/17 09/24/17 18:07 18:07 19:07 WBC RBC Hgb Hct MCV MCH MCHC RDW Plt Count Add Manual Diff Total Counted Seg Neuts % (Manual) Band Neutrophils % Lymphocytes % (Manual) Reactive Lymphs % (Man) Monocytes % (Manual) Eosinophils % (Manual) Basophils % (Manual) Metamyelocytes % Myelocytes % Promyelocytes % Blast Cells % Nucleated RBC % Seg Neutrophils # Man Band Neutrophils # Lymphocytes # (Manual) Abs React Lymphs (Man) Monocytes # (Manual) Eosinophils # (Manual) Basophils # (Manual) Metamyelocytes # Myelocytes # Promyelocytes # Blast Cells # WBC Morphology Hypersegmented Neuts Hyposegmented Neuts Hypogranular Neuts Smudge Cells Toxic Granulation Toxic Vacuolation Dohle Bodies Pelger-Huet Anomaly Beata Rods Platelet Estimate Clumped Platelets Plt Clumps, EDTA Large Platelets Giant Platelets Platelet Satelliting Plt Morphology Comment RBC Morphology Dimorphic RBCs Polychromasia Hypochromasia Poikilocytosis Anisocytosis Microcytosis Macrocytosis Spherocytes Pappenheimer Bodies Sickle Cells Target Cells Tear Drop Cells Ovalocytes Helmet Cells [place] Bodies [place] Rings Karley Cells Bite Cells Crenated Cell Elliptocytes Acanthocytes (Spur) Rouleaux Hemoglobin C Crystals Schistocytes Malaria parasites [place] Bodies Hem Pathologist Commnt PT 14.0 INR 1.03 APTT 34.4 Sodium Potassium Chloride Carbon Dioxide Anion Gap BUN Creatinine Estimated GFR BUN/Creatinine Ratio Glucose Hemoglobin A1c Lactic Acid 2.40 H* 2.40 H* Calcium Total Bilirubin Direct Bilirubin Indirect Bilirubin AST ALT Alkaline Phosphatase Total Creatine Kinase Troponin T Total Protein Albumin Albumin/Globulin Ratio Lipase Urine Color Urine Turbidity Urine pH Ur Specific [place] Urine Protein Urine Glucose (UA) Urine Ketones Urine Blood Urine Nitrite Urine Bilirubin Urine Urobilinogen Ur Leukocyte Esterase Urine WBC (Auto) Urine RBC (Auto) Urine Bacteria (Auto) Urine Mucus Salicylates Urine Opiates Screen Urine Methadone Screen Acetaminophen Ur Barbiturates Screen Ur Phencyclidine Scrn Ur Amphetamines Screen U Benzodiazepines Scrn Urine Cocaine Screen U Marijuana (THC) Screen Drugs of Abuse Note Plasma/Serum Alcohol 09/25/17 09/25/17 08:09 08:09 WBC 15.6 H RBC 4.70 Hgb 13.1 Hct 40.6 D MCV 86 MCH 28 MCHC 32 RDW 14.0 Plt Count 310 Add Manual Diff Total Counted Seg Neuts % (Manual) Band Neutrophils % Lymphocytes % (Manual) Reactive Lymphs % (Man) Monocytes % (Manual) Eosinophils % (Manual) Basophils % (Manual) Metamyelocytes % Myelocytes % Promyelocytes % Blast Cells % Nucleated RBC % Seg Neutrophils # Man Band Neutrophils # Lymphocytes # (Manual) Abs React Lymphs (Man) Monocytes # (Manual) Eosinophils # (Manual) Basophils # (Manual) Metamyelocytes # Myelocytes # Promyelocytes # Blast Cells # WBC Morphology Hypersegmented Neuts Hyposegmented Neuts Hypogranular Neuts Smudge Cells Toxic Granulation Toxic Vacuolation Dohle Bodies Pelger-Huet Anomaly Beata Rods Platelet Estimate Clumped Platelets Plt Clumps, EDTA Large Platelets Giant Platelets Platelet Satelliting Plt Morphology Comment RBC Morphology Dimorphic RBCs Polychromasia Hypochromasia Poikilocytosis Anisocytosis Microcytosis Macrocytosis Spherocytes Pappenheimer Bodies Sickle Cells Target Cells Tear Drop Cells Ovalocytes Helmet Cells [place] Bodies [place] Rings Karley Cells Bite Cells Crenated Cell Elliptocytes Acanthocytes (Spur) Rouleaux Hemoglobin C Crystals Schistocytes Malaria parasites [place] Bodies Hem Pathologist Commnt PT INR APTT Sodium 145 Potassium 3.8 Chloride 108.5 H Carbon Dioxide 26 Anion Gap 14 BUN 9 Creatinine 1.2 Estimated GFR > 60 BUN/Creatinine Ratio 8 Glucose 89 Hemoglobin A1c Lactic Acid Calcium 8.8 D Total Bilirubin Direct Bilirubin Indirect Bilirubin AST ALT Alkaline Phosphatase Total Creatine Kinase Troponin T Total Protein Albumin Albumin/Globulin Ratio Lipase Urine Color Urine Turbidity Urine pH Ur Specific [place] Urine Protein Urine Glucose (UA) Urine Ketones Urine Blood Urine Nitrite Urine Bilirubin Urine Urobilinogen Ur Leukocyte Esterase Urine WBC (Auto) Urine RBC (Auto) Urine Bacteria (Auto) Urine Mucus Salicylates Urine Opiates Screen Urine Methadone Screen Acetaminophen Ur Barbiturates Screen Ur Phencyclidine Scrn Ur Amphetamines Screen U Benzodiazepines Scrn Urine Cocaine Screen U Marijuana (THC) Screen Drugs of Abuse Note Plasma/Serum Alcohol Assessment and Plan 1. N./V/D 2. Leukocytosis --WBC trending down. CT negative for acute process. Pt is no longer vomiting but has no appetite. Two episodes of diarrhea this am. Agree with stool studies including C diff. Could be viral with inflammatory increase in WBC due to immune response vs bacterial. OK for clear liquids. Continue Zosyn for now as pt seems to be improving. He denies abdominal pain. Follow up stool studies. <URBANO,URIEL - Last Filed: 09/25/17 11:41> Medications and Allergies Active Meds: Active Medications Acetaminophen (Tylenol) 650 mg PO Q4H PRN PRN Reason: Pain MILD(1-3)/Fever >100.5/PRADO Heparin Sodium (Porcine) (Heparin) 5,000 unit SUB-Q Q12HR [facility] Last Admin: 09/25/17 00:18 Dose: 5,000 unit Dextrose/Sodium Chloride (D5ns) 1,000 mls @ 125 mls/hr IV DIRECT [facility] Last Admin: 09/25/17 00:18 Dose: 125 mls/hr Piperacillin Sod/Tazobactam Sod (Zosyn/Ns 4.5gm/100ml) 4.5 gm in 100 mls @ 200 mls/hr IV Q8HR [facility]; Protocol Last Admin: 09/25/17 06:37 Dose: 200 mls/hr Pantoprazole Sodium 80 mg/ (Sodium Chloride) 100 mls @ 10 mls/hr IV DIRECT [facility] Last Admin: 09/25/17 02:11 Dose: 8 mg/hr, 10 mls/hr Metoclopramide HCl (Reglan) 10 mg IV Q6H PRN PRN Reason: Nausea And Vomiting Morphine Sulfate (Morphine) 2 mg IV Q4H PRN PRN Reason: Pain, Moderate (4-6) Nicotine (Habitrol) 21 mg TD QDAY [facility] Last Admin: 09/25/17 09:53 Dose: 21 mg Ondansetron HCl (Zofran) 4 mg IV Q8H PRN PRN Reason: Nausea And Vomiting Oxycodone/Acetaminophen (Percocet 5/325) 1 tab PO Q6H PRN PRN Reason: Pain, Moderate (4-6) Sodium Chloride (Sodium Chloride Flush Syringe 10 Ml) 10 ml IV BID [facility] Last Admin: 09/25/17 09:59 Dose: 10 ml Sodium Chloride (Sodium Chloride Flush Syringe 10 Ml) 10 ml IV PRN PRN PRN Reason: LINE FLUSH Exam - Constitutional Vital Signs: Temp Pulse Resp BP Pulse Ox 98.5 F 69 16 97/55 98 09/25/17 05:00 09/25/17 05:00 09/25/17 05:00 09/25/17 05:00 09/25/17 05:00 - Labs CBC & Chem 7: 09/25/17 08:09 09/25/17 08:09 Lab Results: Laboratory Results - last 24 hr 09/24/17 09/24/17 09/24/17 02:16 15:09 15:09 WBC RBC Hgb Hct MCV MCH MCHC RDW Plt Count Add Manual Diff Total Counted Seg Neuts % (Manual) Band Neutrophils % Lymphocytes % (Manual) Reactive Lymphs % (Man) Monocytes % (Manual) Eosinophils % (Manual) Basophils % (Manual) Metamyelocytes % Myelocytes % Promyelocytes % Blast Cells % Nucleated RBC % Seg Neutrophils # Man Band Neutrophils # Lymphocytes # (Manual) Abs React Lymphs (Man) Monocytes # (Manual) Eosinophils # (Manual) Basophils # (Manual) Metamyelocytes # Myelocytes # Promyelocytes # Blast Cells # WBC Morphology Hypersegmented Neuts Hyposegmented Neuts Hypogranular Neuts Smudge Cells Toxic Granulation Toxic Vacuolation Dohle Bodies Pelger-Huet Anomaly Beata Rods Platelet Estimate Clumped Platelets Plt Clumps, EDTA Large Platelets Giant Platelets Platelet Satelliting Plt Morphology Comment RBC Morphology Dimorphic RBCs Polychromasia Hypochromasia Poikilocytosis Anisocytosis Microcytosis Macrocytosis Spherocytes Pappenheimer Bodies Sickle Cells Target Cells Tear Drop Cells Ovalocytes Helmet Cells [place] Bodies [place] Rings Karley Cells Bite Cells Crenated Cell Elliptocytes Acanthocytes (Spur) Rouleaux Hemoglobin C Crystals Schistocytes Malaria parasites [place] Bodies Hem Pathologist Commnt PT INR APTT Sodium Potassium Chloride Carbon Dioxide Anion Gap BUN Creatinine Estimated GFR BUN/Creatinine Ratio Glucose Hemoglobin A1c 5.4 Lactic Acid Calcium Total Bilirubin Direct Bilirubin Indirect Bilirubin AST ALT Alkaline Phosphatase Total Creatine Kinase Troponin T Total Protein Albumin Albumin/Globulin Ratio Lipase Urine Color Urine Turbidity Urine pH Ur Specific [place] Urine Protein Urine Glucose (UA) Urine Ketones Urine Blood Urine Nitrite Urine Bilirubin Urine Urobilinogen Ur Leukocyte Esterase Urine WBC (Auto) Urine RBC (Auto) Urine Bacteria (Auto) Urine Mucus Salicylates < 0.3 L Urine Opiates Screen Urine Methadone Screen Acetaminophen < 5.0 L Ur Barbiturates Screen Ur Phencyclidine Scrn Ur Amphetamines Screen U Benzodiazepines Scrn Urine Cocaine Screen U Marijuana (THC) Screen Drugs of Abuse Note Plasma/Serum Alcohol 09/24/17 09/24/17 09/24/17 15:09 15:09 15:09 WBC 28.4 H RBC 5.57 H Hgb 16.0 H Hct 47.7 H MCV 86 MCH 29 MCHC 34 RDW 14.2 Plt Count 359 Add Manual Diff Complete Total Counted 200 Seg Neuts % (Manual) 87.5 H Band Neutrophils % 1.5 Lymphocytes % (Manual) 5.0 L Reactive Lymphs % (Man) 0 Monocytes % (Manual) 6.0 Eosinophils % (Manual) 0 Basophils % (Manual) 0 Metamyelocytes % 0 Myelocytes % 0 Promyelocytes % 0 Blast Cells % 0 Nucleated RBC % Not Reportable Seg Neutrophils # Man 24.9 H Band Neutrophils # 0.4 Lymphocytes # (Manual) 1.4 Abs React Lymphs (Man) 0.0 Monocytes # (Manual) 1.7 H Eosinophils # (Manual) 0.0 Basophils # (Manual) 0.0 Metamyelocytes # 0.0 Myelocytes # 0.0 Promyelocytes # 0.0 Blast Cells # 0.0 WBC Morphology Not Reportable Hypersegmented Neuts Not Reportable Hyposegmented Neuts Not Reportable Hypogranular Neuts Not Reportable Smudge Cells Not Reportable Toxic Granulation Not Reportable Toxic Vacuolation Not Reportable Dohle Bodies Not Reportable Pelger-Huet Anomaly Not Reportable Beata Rods Not Reportable Platelet Estimate Consistent w auto Clumped Platelets Not Reportable Plt Clumps, EDTA Not Reportable Large Platelets Not Reportable Giant Platelets Not Reportable Platelet Satelliting Not Reportable Plt Morphology Comment Not Reportable RBC Morphology Not Reportable Dimorphic RBCs Not Reportable Polychromasia Not Reportable Hypochromasia Not Reportable Poikilocytosis Not Reportable Anisocytosis 1+ Microcytosis Not Reportable Macrocytosis Not Reportable Spherocytes Not Reportable Pappenheimer Bodies Not Reportable Sickle Cells Not Reportable Target Cells Not Reportable Tear Drop Cells Not Reportable Ovalocytes Not Reportable Helmet Cells Not Reportable [place] Bodies Not Reportable [place] Rings Not Reportable Karley Cells Not Reportable Bite Cells Not Reportable Crenated Cell Not Reportable Elliptocytes Not Reportable Acanthocytes (Spur) Not Reportable Rouleaux Not Reportable Hemoglobin C Crystals Not Reportable Schistocytes Not Reportable Malaria parasites Not Reportable [place] Bodies Not Reportable Hem Pathologist Commnt No PT INR APTT Sodium 140 Potassium 4.7 Chloride 102.5 Carbon Dioxide 23 Anion Gap 19 BUN 14 Creatinine 1.1 Estimated GFR > 60 BUN/Creatinine Ratio 13 Glucose 124 H Hemoglobin A1c Lactic Acid Calcium 10.4 H Total Bilirubin Direct Bilirubin Indirect Bilirubin AST ALT Alkaline Phosphatase Total Creatine Kinase Troponin T Total Protein Albumin Albumin/Globulin Ratio Lipase Urine Color Urine Turbidity Urine pH Ur Specific [place] Urine Protein Urine Glucose (UA) Urine Ketones Urine Blood Urine Nitrite Urine Bilirubin Urine Urobilinogen Ur Leukocyte Esterase Urine WBC (Auto) Urine RBC (Auto) Urine Bacteria (Auto) Urine Mucus Salicylates Urine Opiates Screen Urine Methadone Screen Acetaminophen Ur Barbiturates Screen Ur Phencyclidine Scrn Ur Amphetamines Screen U Benzodiazepines Scrn Urine Cocaine Screen U Marijuana (THC) Screen Drugs of Abuse Note Plasma/Serum Alcohol < 0.01 09/24/17 09/24/17 09/24/17 16:07 16:07 16:59 WBC RBC Hgb Hct MCV MCH MCHC RDW Plt Count Add Manual Diff Total Counted Seg Neuts % (Manual) Band Neutrophils % Lymphocytes % (Manual) Reactive Lymphs % (Man) Monocytes % (Manual) Eosinophils % (Manual) Basophils % (Manual) Metamyelocytes % Myelocytes % Promyelocytes % Blast Cells % Nucleated RBC % Seg Neutrophils # Man Band Neutrophils # Lymphocytes # (Manual) Abs React Lymphs (Man) Monocytes # (Manual) Eosinophils # (Manual) Basophils # (Manual) Metamyelocytes # Myelocytes # Promyelocytes # Blast Cells # WBC Morphology Hypersegmented Neuts Hyposegmented Neuts Hypogranular Neuts Smudge Cells Toxic Granulation Toxic Vacuolation Dohle Bodies Pelger-Huet Anomaly Beata Rods Platelet Estimate Clumped Platelets Plt Clumps, EDTA Large Platelets Giant Platelets Platelet Satelliting Plt Morphology Comment RBC Morphology Dimorphic RBCs Polychromasia Hypochromasia Poikilocytosis Anisocytosis Microcytosis Macrocytosis Spherocytes Pappenheimer Bodies Sickle Cells Target Cells Tear Drop Cells Ovalocytes Helmet Cells Montiel-[place] Bodies [place] Rings Karley Cells Bite Cells Crenated Cell Elliptocytes Acanthocytes (Spur) Rouleaux Hemoglobin C Crystals Schistocytes Malaria parasites [place] Bodies Hem Pathologist Commnt PT INR APTT Sodium Potassium Chloride Carbon Dioxide Anion Gap BUN Creatinine Estimated GFR BUN/Creatinine Ratio Glucose Hemoglobin A1c Lactic Acid Calcium Total Bilirubin 1.00 Direct Bilirubin < 0.2 Indirect Bilirubin 0.8 AST 20 ALT 28 Alkaline Phosphatase 80 Total Creatine Kinase Troponin T Total Protein 8.6 H Albumin 5.3 H Albumin/Globulin Ratio 1.6 Lipase Urine Color Yellow Urine Turbidity Clear Urine pH 5.0 Ur Specific [place] 1.028 Urine Protein 30 mg/dl Urine Glucose (UA) Neg Urine Ketones Tr Urine Blood Neg Urine Nitrite Neg Urine Bilirubin Neg Urine Urobilinogen < 2.0 Ur Leukocyte Esterase Neg Urine WBC (Auto) 5.0 Urine RBC (Auto) 1.0 Urine Bacteria (Auto) 1+ Urine Mucus 3+ Salicylates Urine Opiates Screen Presumptive negative Urine Methadone Screen Presumptive negative Acetaminophen Ur Barbiturates Screen Presumptive negative Ur Phencyclidine Scrn Presumptive negative Ur Amphetamines Screen Presumptive negative U Benzodiazepines Scrn Presumptive negative Urine Cocaine Screen Presumptive positive U Marijuana (THC) Screen Presumptive positive Drugs of Abuse Note Disclamer Plasma/Serum Alcohol 09/24/17 09/24/17 09/24/17 16:59 16:59 16:59 WBC RBC Hgb Hct MCV MCH MCHC RDW Plt Count Add Manual Diff Total Counted Seg Neuts % (Manual) Band Neutrophils % Lymphocytes % (Manual) Reactive Lymphs % (Man) Monocytes % (Manual) Eosinophils % (Manual) Basophils % (Manual) Metamyelocytes % Myelocytes % Promyelocytes % Blast Cells % Nucleated RBC % Seg Neutrophils # Man Band Neutrophils # Lymphocytes # (Manual) Abs React Lymphs (Man) Monocytes # (Manual) Eosinophils # (Manual) Basophils # (Manual) Metamyelocytes # Myelocytes # Promyelocytes # Blast Cells # WBC Morphology Hypersegmented Neuts Hyposegmented Neuts Hypogranular Neuts Smudge Cells Toxic Granulation Toxic Vacuolation Dohle Bodies Pelger-Huet Anomaly Beata Rods Platelet Estimate Clumped Platelets Plt Clumps, EDTA Large Platelets Giant Platelets Platelet Satelliting Plt Morphology Comment RBC Morphology Dimorphic RBCs Polychromasia Hypochromasia Poikilocytosis Anisocytosis Microcytosis Macrocytosis Spherocytes Pappenheimer Bodies Sickle Cells Target Cells Tear Drop Cells Ovalocytes Helmet Cells [place] Bodies [place] Rings [place] Cells Bite Cells Crenated Cell Elliptocytes Acanthocytes (Spur) Rouleaux Hemoglobin C Crystals Schistocytes Malaria parasites [place] Bodies Hem Pathologist Commnt PT INR APTT Sodium Potassium Chloride Carbon Dioxide Anion Gap BUN Creatinine Estimated GFR BUN/Creatinine Ratio Glucose Hemoglobin A1c Lactic Acid Calcium Total Bilirubin Direct Bilirubin Indirect Bilirubin AST ALT Alkaline Phosphatase Total Creatine Kinase 181 H Troponin T < 0.010 Total Protein Albumin Albumin/Globulin Ratio Lipase 16 Urine Color Urine Turbidity Urine pH Ur Specific [place] Urine Protein Urine Glucose (UA) Urine Ketones Urine Blood Urine Nitrite Urine Bilirubin Urine Urobilinogen Ur Leukocyte Esterase Urine WBC (Auto) Urine RBC (Auto) Urine Bacteria (Auto) Urine Mucus Salicylates Urine Opiates Screen Urine Methadone Screen Acetaminophen Ur Barbiturates Screen Ur Phencyclidine Scrn Ur Amphetamines Screen U Benzodiazepines Scrn Urine Cocaine Screen U Marijuana (THC) Screen Drugs of Abuse Note Plasma/Serum Alcohol 09/24/17 09/24/17 09/24/17 18:07 18:07 19:07 WBC RBC Hgb Hct MCV MCH MCHC RDW Plt Count Add Manual Diff Total Counted Seg Neuts % (Manual) Band Neutrophils % Lymphocytes % (Manual) Reactive Lymphs % (Man) Monocytes % (Manual) Eosinophils % (Manual) Basophils % (Manual) Metamyelocytes % Myelocytes % Promyelocytes % Blast Cells % Nucleated RBC % Seg Neutrophils # Man Band Neutrophils # Lymphocytes # (Manual) Abs React Lymphs (Man) Monocytes # (Manual) Eosinophils # (Manual) Basophils # (Manual) Metamyelocytes # Myelocytes # Promyelocytes # Blast Cells # WBC Morphology Hypersegmented Neuts Hyposegmented Neuts Hypogranular Neuts Smudge Cells Toxic Granulation Toxic Vacuolation Dohle Bodies Pelger-Huet Anomaly Beata Rods Platelet Estimate Clumped Platelets Plt Clumps, EDTA Large Platelets Giant Platelets Platelet Satelliting Plt Morphology Comment RBC Morphology Dimorphic RBCs Polychromasia Hypochromasia Poikilocytosis Anisocytosis Microcytosis Macrocytosis Spherocytes Pappenheimer Bodies Sickle Cells Target Cells Tear Drop Cells Ovalocytes Helmet Cells [place] Bodies [place] Rings [place] Cells Bite Cells Crenated Cell Elliptocytes Acanthocytes (Spur) Rouleaux Hemoglobin C Crystals Schistocytes Malaria parasites [place] Bodies Hem Pathologist Commnt PT 14.0 INR 1.03 APTT 34.4 Sodium Potassium Chloride Carbon Dioxide Anion Gap BUN Creatinine Estimated GFR BUN/Creatinine Ratio Glucose Hemoglobin A1c Lactic Acid 2.40 H* 2.40 H* Calcium Total Bilirubin Direct Bilirubin Indirect Bilirubin AST ALT Alkaline Phosphatase Total Creatine Kinase Troponin T Total Protein Albumin Albumin/Globulin Ratio Lipase Urine Color Urine Turbidity Urine pH Ur Specific [place] Urine Protein Urine Glucose (UA) Urine Ketones Urine Blood Urine Nitrite Urine Bilirubin Urine Urobilinogen Ur Leukocyte Esterase Urine WBC (Auto) Urine RBC (Auto) Urine Bacteria (Auto) Urine Mucus Salicylates Urine Opiates Screen Urine Methadone Screen Acetaminophen Ur Barbiturates Screen Ur Phencyclidine Scrn Ur Amphetamines Screen U Benzodiazepines Scrn Urine Cocaine Screen U Marijuana (THC) Screen Drugs of Abuse Note Plasma/Serum Alcohol 09/25/17 09/25/17 08:09 08:09 WBC 15.6 H RBC 4.70 Hgb 13.1 Hct 40.6 D MCV 86 MCH 28 MCHC 32 RDW 14.0 Plt Count 310 Add Manual Diff Total Counted Seg Neuts % (Manual) Band Neutrophils % Lymphocytes % (Manual) Reactive Lymphs % (Man) Monocytes % (Manual) Eosinophils % (Manual) Basophils % (Manual) Metamyelocytes % Myelocytes % Promyelocytes % Blast Cells % Nucleated RBC % Seg Neutrophils # Man Band Neutrophils # Lymphocytes # (Manual) Abs React Lymphs (Man) Monocytes # (Manual) Eosinophils # (Manual) Basophils # (Manual) Metamyelocytes # Myelocytes # Promyelocytes # Blast Cells # WBC Morphology Hypersegmented Neuts Hyposegmented Neuts Hypogranular Neuts Smudge Cells Toxic Granulation Toxic Vacuolation Dohle Bodies Pelger-Huet Anomaly Beata Rods Platelet Estimate Clumped Platelets Plt Clumps, EDTA Large Platelets Giant Platelets Platelet Satelliting Plt Morphology Comment RBC Morphology Dimorphic RBCs Polychromasia Hypochromasia Poikilocytosis Anisocytosis Microcytosis Macrocytosis Spherocytes Pappenheimer Bodies Sickle Cells Target Cells Tear Drop Cells Ovalocytes Helmet Cells Montiel[place] Bodies [place] Rings [place] Cells Bite Cells Crenated Cell Elliptocytes Acanthocytes (Spur) Rouleaux Hemoglobin C Crystals Schistocytes Malaria parasites [place] Bodies Hem Pathologist Commnt PT INR APTT Sodium 145 Potassium 3.8 Chloride 108.5 H Carbon Dioxide 26 Anion Gap 14 BUN 9 Creatinine 1.2 Estimated GFR > 60 BUN/Creatinine Ratio 8 Glucose 89 Hemoglobin A1c Lactic Acid Calcium 8.8 D Total Bilirubin Direct Bilirubin Indirect Bilirubin AST ALT Alkaline Phosphatase Total Creatine Kinase Troponin T Total Protein Albumin Albumin/Globulin Ratio Lipase Urine Color Urine Turbidity Urine pH Ur Specific [place] Urine Protein Urine Glucose (UA) Urine Ketones Urine Blood Urine Nitrite Urine Bilirubin Urine Urobilinogen Ur Leukocyte Esterase Urine WBC (Auto) Urine RBC (Auto) Urine Bacteria (Auto) Urine Mucus Salicylates Urine Opiates Screen Urine Methadone Screen Acetaminophen Ur Barbiturates Screen Ur Phencyclidine Scrn Ur Amphetamines Screen U Benzodiazepines Scrn Urine Cocaine Screen U Marijuana (THC) Screen Drugs of Abuse Note Plasma/Serum Alcohol Assessment and Plan - Patient Problems (1) Cocaine abuse Current Visit: Yes Status: Acute (2) Gastroenteritis Current Visit: Yes Status: Acute Plan to address problem: The patient likely has an acute viral gastroenteritis. Supportive care and stool studies planned. (3) Leukocytosis Current Visit: Yes Status: Acute Qualifiers: Leukocytosis type: unspecified Qualified Code(s): D72.829 - Elevated white blood cell count, unspecified
[2017-09-25] MEDS ORDERED: HABITROL TD SCH (10:00)
--- NOTE | 2017-09-25 10:03 | Progress Note ---
Assessment and Plan Assessment and plan: Acute gastroenteritis with nausea, vomiting, diarrhea. Stool studies ordered. C. diff ordered Continue iv fluids Dehydration due to fluid loss from diarrhea. Syncope dueto dehydration. leukocytosis due to gastroenteritis To r/o sepsis. Blood cultures drawn Cocaine abuse. Counseled on imprtance of quitting marijuana abuse. Counseld on importance of quitting Discussed with patient and mother at bedside. History Interval history: Nausea vomiting Diarrhea Hospitalist Physical - Physical exam Narrative exam: General: Not in acute distress, lying in bed, HEENT:Normocephalic, atraumatic Neck:supple,no JVD Lungs: Clear to auscultation bilaterally, no crackles, no wheeze Heart:S1 and S2 regular, no murmurs, rubs or gallop Abd: soft, non tender, non distended, normal bowel sounds Ext: No edema, no clubbing, no cyanosis Neuro: AAO x 3, moves all extremities. - Constitutional Vitals: Temp Pulse Resp BP Pulse Ox 98.5 F 69 16 97/55 98 09/25/17 05:00 09/25/17 05:00 09/25/17 05:00 09/25/17 05:00 09/25/17 05:00 General appearance: Present: no acute distress, well-nourished, other (tongue dry) Results - Labs CBC & Chem 7: 09/25/17 08:09 09/25/17 08:09 Labs: Laboratory Last Values WBC 15.6 K/mm3 (4.5-11.0) H 09/25/17 08:09 RBC 4.70 M/mm3 (3.65-5.03) 09/25/17 08:09 Hgb 13.1 gm/dl (11.8-15.2) 09/25/17 08:09 Hct 40.6 % (35.5-45.6) D 09/25/17 08:09 MCV 86 fl (84-94) 09/25/17 08:09 MCH 28 pg (28-32) 09/25/17 08:09 MCHC 32 % (32-34) 09/25/17 08:09 RDW 14.0 % (13.2-15.2) 09/25/17 08:09 Plt Count 310 K/mm3 (140-440) 09/25/17 08:09 Add Manual Diff Complete 09/24/17 15:09 Total Counted 200 09/24/17 15:09 Seg Neuts % (Manual) 87.5 % (40.0-70.0) H 09/24/17 15:09 Band Neutrophils % 1.5 % 09/24/17 15:09 Lymphocytes % (Manual) 5.0 % (13.4-35.0) L 09/24/17 15:09 Reactive Lymphs % (Man) 0 % 09/24/17 15:09 Monocytes % (Manual) 6.0 % (0.0-7.3) 09/24/17 15:09 Eosinophils % (Manual) 0 % (0.0-4.3) 09/24/17 15:09 Basophils % (Manual) 0 % (0.0-1.8) 09/24/17 15:09 Metamyelocytes % 0 % 09/24/17 15:09 Myelocytes % 0 % 09/24/17 15:09 Promyelocytes % 0 % 09/24/17 15:09 Blast Cells % 0 % 09/24/17 15:09 Nucleated RBC % Not Reportable 09/24/17 15:09 Seg Neutrophils # Man 24.9 K/mm3 (1.8-7.7) H 09/24/17 15:09 Band Neutrophils # 0.4 K/mm3 09/24/17 15:09 Lymphocytes # (Manual) 1.4 K/mm3 (1.2-5.4) 09/24/17 15:09 Abs React Lymphs (Man) 0.0 K/mm3 09/24/17 15:09 Monocytes # (Manual) 1.7 K/mm3 (0.0-0.8) H 09/24/17 15:09 Eosinophils # (Manual) 0.0 K/mm3 (0.0-0.4) 09/24/17 15:09 Basophils # (Manual) 0.0 K/mm3 (0.0-0.1) 09/24/17 15:09 Metamyelocytes # 0.0 K/mm3 09/24/17 15:09 Myelocytes # 0.0 K/mm3 09/24/17 15:09 Promyelocytes # 0.0 K/mm3 09/24/17 15:09 Blast Cells # 0.0 K/mm3 09/24/17 15:09 WBC Morphology Not Reportable 09/24/17 15:09 Hypersegmented Neuts Not Reportable 09/24/17 15:09 Hyposegmented Neuts Not Reportable 09/24/17 15:09 Hypogranular Neuts Not Reportable 09/24/17 15:09 Smudge Cells Not Reportable 09/24/17 15:09 Toxic Granulation Not Reportable 09/24/17 15:09 Toxic Vacuolation Not Reportable 09/24/17 15:09 Dohle Bodies Not Reportable 09/24/17 15:09 Pelger-Huet Anomaly Not Reportable 09/24/17 15:09 Beata Rods Not Reportable 09/24/17 15:09 Platelet Estimate Consistent w auto 09/24/17 15:09 Clumped Platelets Not Reportable 09/24/17 15:09 Plt Clumps, EDTA Not Reportable 09/24/17 15:09 Large Platelets Not Reportable 09/24/17 15:09 Giant Platelets Not Reportable 09/24/17 15:09 Platelet Satelliting Not Reportable 09/24/17 15:09 Plt Morphology Comment Not Reportable 09/24/17 15:09 RBC Morphology Not Reportable 09/24/17 15:09 Dimorphic RBCs Not Reportable 09/24/17 15:09 Polychromasia Not Reportable 09/24/17 15:09 Hypochromasia Not Reportable 09/24/17 15:09 Poikilocytosis Not Reportable 09/24/17 15:09 Anisocytosis 1+ 09/24/17 15:09 Microcytosis Not Reportable 09/24/17 15:09 Macrocytosis Not Reportable 09/24/17 15:09 Spherocytes Not Reportable 09/24/17 15:09 Pappenheimer Bodies Not Reportable 09/24/17 15:09 Sickle Cells Not Reportable 09/24/17 15:09 Target Cells Not Reportable 09/24/17 15:09 Tear Drop Cells Not Reportable 09/24/17 15:09 Ovalocytes Not Reportable 09/24/17 15:09 Helmet Cells Not Reportable 09/24/17 15:09 Montiel-[place] Bodies Not Reportable 09/24/17 15:09 [place] Rings Not Reportable 09/24/17 15:09 [place] Cells Not Reportable 09/24/17 15:09 Bite Cells Not Reportable 09/24/17 15:09 Crenated Cell Not Reportable 09/24/17 15:09 Elliptocytes Not Reportable 09/24/17 15:09 Acanthocytes (Spur) Not Reportable 09/24/17 15:09 Rouleaux Not Reportable 09/24/17 15:09 Hemoglobin C Crystals Not Reportable 09/24/17 15:09 Schistocytes Not Reportable 09/24/17 15:09 Malaria parasites Not Reportable 09/24/17 15:09 [place] Bodies Not Reportable 09/24/17 15:09 Hem Pathologist Commnt No 09/24/17 15:09 PT 14.0 Sec. (12.2-14.9) 09/24/17 18:07 INR 1.03 (0.87-1.13) 09/24/17 18:07 APTT 34.4 Sec. (24.2-36.6) 09/24/17 18:07 Sodium 145 mmol/L (137-145) 09/25/17 08:09 Potassium 3.8 mmol/L (3.6-5.0) 09/25/17 08:09 Chloride 108.5 mmol/L (98-107) H 09/25/17 08:09 Carbon Dioxide 26 mmol/L (22-30) 09/25/17 08:09 Anion Gap 14 mmol/L 09/25/17 08:09 BUN 9 mg/dL (9-20) 09/25/17 08:09 Creatinine 1.2 mg/dL (0.8-1.5) 09/25/17 08:09 Estimated GFR > 60 ml/min 09/25/17 08:09 BUN/Creatinine Ratio 8 % 09/25/17 08:09 Glucose 89 mg/dL (75-100) 09/25/17 08:09 Hemoglobin A1c 5.4 % (4-6) 09/24/17 02:16 Lactic Acid 2.40 mmol/L (0.7-2.0) H* 09/24/17 19:07 Calcium 8.8 mg/dL (8.4-10.2) D 09/25/17 08:09 Total Bilirubin 1.00 mg/dL (0.1-1.2) 09/24/17 16:59 Direct Bilirubin < 0.2 mg/dL (0-0.2) 09/24/17 16:59 Indirect Bilirubin 0.8 mg/dL 09/24/17 16:59 AST 20 units/L (5-40) 09/24/17 16:59 ALT 28 units/L (7-56) 09/24/17 16:59 Alkaline Phosphatase 80 units/L (35-129) 09/24/17 16:59 Total Creatine Kinase 181 units/L (55-170) H 09/24/17 16:59 Troponin T < 0.010 ng/mL (0.00-0.029) 09/24/17 16:59 Total Protein 8.6 g/dL (6.3-8.2) H 09/24/17 16:59 Albumin 5.3 g/dL (3.9-5) H 09/24/17 16:59 Albumin/Globulin Ratio 1.6 % 09/24/17 16:59 Lipase 16 units/L (13-60) 09/24/17 16:59 Urine Color Yellow (Yellow) 09/24/17 16:07 Urine Turbidity Clear (Clear) 09/24/17 16:07 Urine pH 5.0 (5.0-7.0) 09/24/17 16:07 Ur Specific [place] 1.028 (1.003-1.030) 09/24/17 16:07 Urine Protein 30 mg/dl mg/dL (Negative) 09/24/17 16:07 Urine Glucose (UA) Neg mg/dL (Negative) 09/24/17 16:07 Urine Ketones Tr mg/dL (Negative) 09/24/17 16:07 Urine Blood Neg (Negative) 09/24/17 16:07 Urine Nitrite Neg (Negative) 09/24/17 16:07 Urine Bilirubin Neg (Negative) 09/24/17 16:07 Urine Urobilinogen < 2.0 mg/dL (<2.0) 09/24/17 16:07 Ur Leukocyte Esterase Neg (Negative) 09/24/17 16:07 Urine WBC (Auto) 5.0 /HPF (0.0-6.0) 09/24/17 16:07 Urine RBC (Auto) 1.0 /HPF (0.0-6.0) 09/24/17 16:07 Urine Bacteria (Auto) 1+ /HPF (Negative) 09/24/17 16:07 Urine Mucus 3+ /HPF 09/24/17 16:07 Salicylates < 0.3 mg/dL (2.8-20.0) L 09/24/17 15:09 Urine Opiates Screen Presumptive negative 09/24/17 16:07 Urine Methadone Screen Presumptive negative 09/24/17 16:07 Acetaminophen < 5.0 ug/mL (10.0-30.0) L 09/24/17 15:09 Ur Barbiturates Screen Presumptive negative 09/24/17 16:07 Ur Phencyclidine Scrn Presumptive negative 09/24/17 16:07 Ur Amphetamines Screen Presumptive negative 09/24/17 16:07 U Benzodiazepines Scrn Presumptive negative 09/24/17 16:07 Urine Cocaine Screen Presumptive positive 09/24/17 16:07 U Marijuana (THC) Screen Presumptive positive 09/24/17 16:07 Drugs of Abuse Note Disclamer 09/24/17 16:07 Plasma/Serum Alcohol < 0.01 % (0-0.07) 09/24/17 15:09
--- NOTE | 2017-09-25 13:28 | Consultation ---
History of Present Illness - Reason for Consult Consult date: 09/25/17 sepsis Requesting physician: OSIRIS GILL - History of Present Illness 22 y/o male with history of GERD; admitted on 09/24/17 due to 48h history of severe nausea, vomiting, diarrhea and abdominal pain. Abdominal pain is in the lower abdomen crampy 10/10. No modifying factors.There's small amount of blood in 1 episode of vomiting. Patient works in the [employer] industry. He noted severe nausea and after vomiting felt like passing out. Denies any recent fever, chills , cough, SOB. He was c/o recently of reflux. Denies eating out before episode. He is sexually active with female inconsistent condom usage. Reports smoking marihuana. In the ED, temp 99, HR 66, R 24, BP 118/634. WBC 28K. Hg 16. plat 359. Creat 1.1. Glu 124. Lactate 2.4. CK 181. LFTs normal. UDS+cocaine and +marihuana. Micro: Cdiff neg Stool blood + Blood cx ngtd Past History Past Medical History: No medical history Past Surgical History: No surgical history Social history: smoking, other (cocaine and marijuana use. ) Family history: no significant family history Medications and Allergies Allergies Allergy/AdvReac Type Severity Reaction Status Date / Time No Known Allergies Allergy Unverified 09/24/17 14:52 Home Medications Medication Instructions Recorded Confirmed Last Taken Type No Known Home Medications [No 09/24/17 09/24/17 Unknown History Reported Home Medications] Active Meds: Active Medications Acetaminophen (Tylenol) 650 mg PO Q4H PRN PRN Reason: Pain MILD(1-3)/Fever >100.5/PRADO Heparin Sodium (Porcine) (Heparin) 5,000 unit SUB-Q Q12HR SIRISHA Last Admin: 09/25/17 00:18 Dose: 5,000 unit Dextrose/Sodium Chloride (D5ns) 1,000 mls @ 125 mls/hr IV DIRECT SIRISHA Last Admin: 09/25/17 00:18 Dose: 125 mls/hr Piperacillin Sod/Tazobactam Sod (Zosyn/Ns 4.5gm/100ml) 4.5 gm in 100 mls @ 200 mls/hr IV Q8HR SIRISHA; Protocol Last Admin: 09/25/17 06:37 Dose: 200 mls/hr Pantoprazole Sodium 80 mg/ (Sodium Chloride) 100 mls @ 10 mls/hr IV DIRECT [facility] Last Admin: 09/25/17 02:11 Dose: 8 mg/hr, 10 mls/hr Metoclopramide HCl (Reglan) 10 mg IV Q6H PRN PRN Reason: Nausea And Vomiting Morphine Sulfate (Morphine) 2 mg IV Q4H PRN PRN Reason: Pain, Moderate (4-6) Nicotine (Habitrol) 21 mg TD QDAY [facility] Last Admin: 09/25/17 09:53 Dose: 21 mg Ondansetron HCl (Zofran) 4 mg IV Q8H PRN PRN Reason: Nausea And Vomiting Oxycodone/Acetaminophen (Percocet 5/325) 1 tab PO Q6H PRN PRN Reason: Pain, Moderate (4-6) Sodium Chloride (Sodium Chloride Flush Syringe 10 Ml) 10 ml IV BID [facility] Last Admin: 09/25/17 09:59 Dose: 10 ml Sodium Chloride (Sodium Chloride Flush Syringe 10 Ml) 10 ml IV PRN PRN PRN Reason: LINE FLUSH Review of Systems All systems: negative (as per HPI) Physical Examination - Physical Exam Narrative exam: Alert in NAD NC/AT PATRIZIA clear OP Lungs CT CV RRR Abd soft NT ND Ext no edema skin no rash neuro alert and oriented non focal LN no LNs - Constitutional Vitals: Vital Signs Temp Pulse Resp BP Pulse Ox 98.5 F 69 16 97/55 98 09/25/17 05:00 09/25/17 05:00 09/25/17 05:00 09/25/17 05:00 09/25/17 05:00 Temperature -Last 24 Hours Temperature 98.5 F Temperature 98.9 F Temperature 99.0 F Temperature 98.3 F Temperature 99 F Results - Labs CBC & Chem 7: 09/25/17 08:09 09/25/17 08:09 Labs: Abnormal lab results 09/24/17 09/24/17 09/24/17 Range/Units 15:09 15:09 15:09 WBC (4.5-11.0) K/mm3 RBC (3.65-5.03) M/mm3 Hgb (11.8-15.2) gm/dl Hct (35.5-45.6) % Seg Neuts % (Manual) (40.0-70.0) % Lymphocytes % (Manual) (13.4-35.0) % Seg Neutrophils # Man (1.8-7.7) K/mm3 Monocytes # (Manual) (0.0-0.8) K/mm3 Chloride (98-107) mmol/L Glucose 124 H (75-100) mg/dL Lactic Acid (0.7-2.0) mmol/L Calcium 10.4 H (8.4-10.2) mg/dL Total Creatine Kinase (55-170) units/L Total Protein (6.3-8.2) g/dL Albumin (3.9-5) g/dL Salicylates < 0.3 L (2.8-20.0) mg/dL Acetaminophen < 5.0 L (10.0-30.0) ug/mL 09/24/17 09/24/17 09/24/17 Range/Units 15:09 16:59 16:59 WBC 28.4 H (4.5-11.0) K/mm3 RBC 5.57 H (3.65-5.03) M/mm3 Hgb 16.0 H (11.8-15.2) gm/dl Hct 47.7 H (35.5-45.6) % Seg Neuts % (Manual) 87.5 H (40.0-70.0) % Lymphocytes % (Manual) 5.0 L (13.4-35.0) % Seg Neutrophils # Man 24.9 H (1.8-7.7) K/mm3 Monocytes # (Manual) 1.7 H (0.0-0.8) K/mm3 Chloride (98-107) mmol/L Glucose (75-100) mg/dL Lactic Acid (0.7-2.0) mmol/L Calcium (8.4-10.2) mg/dL Total Creatine Kinase 181 H (55-170) units/L Total Protein 8.6 H (6.3-8.2) g/dL Albumin 5.3 H (3.9-5) g/dL Salicylates (2.8-20.0) mg/dL Acetaminophen (10.0-30.0) ug/mL 09/24/17 09/24/17 09/25/17 Range/Units 18:07 19:07 08:09 WBC 15.6 H (4.5-11.0) K/mm3 RBC (3.65-5.03) M/mm3 Hgb (11.8-15.2) gm/dl Hct (35.5-45.6) % Seg Neuts % (Manual) (40.0-70.0) % Lymphocytes % (Manual) (13.4-35.0) % Seg Neutrophils # Man (1.8-7.7) K/mm3 Monocytes # (Manual) (0.0-0.8) K/mm3 Chloride (98-107) mmol/L Glucose (75-100) mg/dL Lactic Acid 2.40 H* 2.40 H* (0.7-2.0) mmol/L Calcium (8.4-10.2) mg/dL Total Creatine Kinase (55-170) units/L Total Protein (6.3-8.2) g/dL Albumin (3.9-5) g/dL Salicylates (2.8-20.0) mg/dL Acetaminophen (10.0-30.0) ug/mL 09/25/17 Range/Units 08:09 WBC (4.5-11.0) K/mm3 RBC (3.65-5.03) M/mm3 Hgb (11.8-15.2) gm/dl Hct (35.5-45.6) % Seg Neuts % (Manual) (40.0-70.0) % Lymphocytes % (Manual) (13.4-35.0) % Seg Neutrophils # Man (1.8-7.7) K/mm3 Monocytes # (Manual) (0.0-0.8) K/mm3 Chloride 108.5 H (98-107) mmol/L Glucose (75-100) mg/dL Lactic Acid (0.7-2.0) mmol/L Calcium (8.4-10.2) mg/dL Total Creatine Kinase (55-170) units/L Total Protein (6.3-8.2) g/dL Albumin (3.9-5) g/dL Salicylates (2.8-20.0) mg/dL Acetaminophen (10.0-30.0) ug/mL Assessment and Plan Assessment: 1) Leukocytosis: from gastroenteritis 2) Acute gastroenteritis: viral vs. bacterial. C diff neg. CT abdomen negative. 2) Cocaine and marihuana abuse Plan: -stop zosyn -start ceftriaxone and flagyl -f/u stool cultures -check HIV -monitor leukocytosis -if better ok to d/c home on levaquin 500 mg po total 3 days Rocio Carbone MD
[2017-09-25] MEDS ORDERED: ROCEPHIN/NS 2 GM/100 ML 2 GM/100 ML BAG IV SCH (15:00)
[2017-09-25] MEDS ORDERED: cefTRIAXone 2 GM in NACL 0.9% 20 ML IV SCH (15:00)
[2017-09-25] MEDS: FLAGYL 500 MG/100 ML 500 MG/100 ML BAG IV SCH ×2 (16:00→22:33)
[2017-09-25] MEDS: cefTRIAXone 2 GM in NACL 0.9% 20 ML IV SCH (18:26)
[2017-09-26] MEDS: D5NS 1,000 ML IV SCH (06:06)
[2017-09-26] MEDS: FLAGYL 500 MG/100 ML 500 MG/100 ML BAG IV SCH (06:07)
[2017-09-26 06:39] LABS: Hematocrit 39.6 % (35.5-45.6); Hemoglobin 13.4 gm/dl (11.8-15.2); Mean Corpuscular HGB Conc 34 % (32-34); Mean Corpuscular Hemoglobin 29 pg (28-32); Mean Corpuscular Volume 85 fl (84-94); Platelet Count 275 K/mm3 (140-440); Red Blood Count 4.66 M/mm3 (3.65-5.03); Red Cell Distribution Width 14.1 % (13.2-15.2)
[2017-09-26 07:04] LABS: BUN/Creatinine Ratio 7; Blood Urea Nitrogen 8 mg/dL (9-20); Calcium 8.7 mg/dL (8.4-10.2); Hemolysis Index 5
[2017-09-26] MEDS: PROTONIX 80 MG in NACL 0.9% 100 ML IV SCH (09:45)
[2017-09-26] MEDS: cefTRIAXone 2 GM in NACL 0.9% 20 ML IV SCH (09:46)
[2017-09-26] MEDS ORDERED: XANAX PO PRN (10:40)
--- NOTE | 2017-09-26 11:23 | Gastroenterology Progress Note ---
Assessment and Plan - Patient Problems (1) Cocaine abuse Current Visit: Yes Status: Acute (2) Gastroenteritis Current Visit: Yes Status: Acute Plan to address problem: Resolving symptoms. Stool C. diff is negative. Stable to go home GI [facility]. I will s/o and f/u PRN. Thank you for this consultation. (3) Leukocytosis Current Visit: Yes Status: Acute Qualifiers: Leukocytosis type: unspecified Qualified Code(s): D72.829 - Elevated white blood cell count, unspecified Subjective Date of service: 09/26/17 Principal diagnosis: N/V/Diarrhea Interval history: Reports resolution of N/V and has minimal diarrhea. No abdominal pain. Objective - Constitutional Vitals: Temp Pulse Resp BP Pulse Ox 98.6 F 61 18 112/57 100 09/26/17 07:55 09/26/17 07:55 09/26/17 07:55 09/26/17 07:55 09/26/17 07:55 General appearance: no acute distress - EENT ENT: hearing intact, clear oral mucosa, dentition normal - Respiratory Respiratory effort: normal Respiratory: bilateral: CTA - Cardiovascular Rhythm: regular - Gastrointestinal General gastrointestinal: Present: soft, non-tender, non-distended, normal bowel sounds - Neurologic Neurological: alert and oriented x3 - Labs CBC & Chem 7: 09/26/17 06:20 09/26/17 06:20 Labs: Laboratory Results - last 24 hr 09/24/17 09/25/17 09/26/17 Unknown 14:43 06:20 WBC 10.3 RBC 4.66 Hgb 13.4 Hct 39.6 MCV 85 MCH 29 MCHC 34 RDW 14.1 Plt Count 275 Sodium Potassium Chloride Carbon Dioxide Anion Gap BUN Creatinine Estimated GFR BUN/Creatinine Ratio Glucose Calcium C. difficile Toxin A&B Negative HIV 1&2 Antibody Rapid Non react HIV P24 Antigen Non react 09/26/17 06:20 WBC RBC Hgb Hct MCV MCH MCHC RDW Plt Count Sodium 142 Potassium 3.8 Chloride 105.3 Carbon Dioxide 27 Anion Gap 14 BUN 8 L Creatinine 1.2 Estimated GFR > 60 BUN/Creatinine Ratio 7 Glucose 89 Calcium 8.7 C. difficile Toxin A&B HIV 1&2 Antibody Rapid HIV P24 Antigen
--- NOTE | 2017-09-26 13:06 | Discharge Summary ---
Providers - Providers Date of Admission: 09/24/17 19:41 Date of discharge: 09/26/17 Attending physician: HEIDI FLORES 09/24/17 Consult to Case Management [CONS] Routine Services Needed at Discharge: Iphone Developer Notified:: case management 09/24/17 21:45 Consult to Physician [CONS] Routine Comment: Consulting Provider: ROSEMARIE MAYNARD Physician Instructions: Reason For Exam: Sepsis??? 09/24/17 21:54 Consult to Physician [CONS] Routine Comment: Consulting Provider: URIEL URBANO Physician Instructions: Reason For Exam: Severe Gastritis Primary care physician: [employer] Hospitalization Condition: Fair Disposition: DC-01 TO HOME OR SELFCARE Core Measure Documentation - Palliative Care Palliative Care/ Comfort Measures: Not Applicable - Core Measures Any of the following diagnoses?: none Exam - Constitutional Vitals: Temp Pulse Resp BP Pulse Ox 98.6 F 61 18 112/57 100 09/26/17 07:55 09/26/17 07:55 09/26/17 07:55 09/26/17 07:55 09/26/17 07:55 Plan Activity: no restrictions Diet: regular Additional Instructions: 1.Follow up with PCP or [facility] in 1 week. Follow up with: PRIMARY CARE,MD [Primary Care Provider] - 3-5 Days Prescriptions: Levofloxacin [Levaquin TAB] 500 mg PO QDAY #5 tablet
[2017-09-26 13:08] VITALS: BP 106/64
== END 2017-09-26 14:00 | disposition home or self-care (01) | DRG 872 ==
LOC: EDSEX → ED 13:55 → 4A 19:41
PROVIDERS: ADMIT Internal Medicine; ATTEND Internal Medicine
DX: A41.9 Sepsis, unspecified organism (principal); F12.10 Cannabis abuse, uncomplicated; K21.9 Gastro-esophageal reflux disease without esophagitis; F14.10 Cocaine abuse, uncomplicated; F41.9 Anxiety disorder, unspecified; Z82.49 Family history of ischemic heart disease and other diseases of the circulatory system; K29.00 Acute gastritis without bleeding; K52.9 Noninfective gastroenteritis and colitis, unspecified; F17.210 Nicotine dependence, cigarettes, uncomplicated; E86.0 Dehydration; Z71.51 Drug abuse counseling and surveillance of drug abuser
CPT/HCPCS: 36415; 70450; 71045; 74177; 80048; 80074; 80307; 80320; 81001; 82140; 82270; 82550; 83036; 83690; 84484; 85007; 85025; 85027; 85610; 85730; 87040; 87045; 87324; 87806; 93005; 93010; 96374; 99285; C9113; G0480; J0696; J1644; J1956; J2405; J2543; J7030; J7042